=== PATIENT | male | born 1985 | race Caucasian/White ===

== ENCOUNTER 2016-12-16 06:49 | Emergency (ER) | payer SELFPAY ==
[2016-12-16 06:55] VITALS: TEMP 97.9
--- NOTE | 2016-12-16 07:21 | EDPHY ---
HPI/HX/ROS/PE/MDM Narrative: CHIEF COMPLAINT: Xanax withdrawal HPI: The patient is a 31-year-old male who comes to the ED because he is worried about withdrawing from Xanax. The patient is about to run out of Xanax. He states he takes up to 4mg per day. He has also been taking "Phenibut", a medication he orders online for anxiety. The patient states he has a lot to do this weekend and does not want to go to detox. He requests another dose of Xanax to help his withdraws. The patient has experienced benzo withdrawal in the past, no reported seizure withdrawal. He denies shakiness, fever, or abdominal pain. No nausea, vomiting, or diarrhea. REVIEW OF SYSTEMS: Aside from elements discussed in the HPI, a comprehensive 10-point review of systems was reviewed and is negative. PMH: Tonsillectomy. SOCIAL HISTORY: Substance abuse. PHYSICAL EXAM: General: Patient is alert, in no acute distress. ENT: Eyes are normal to inspection. ENT inspection normal. Neck: Normal inspection. Full range of motion. Respiratory: No respiratory distress. Breath sounds normal bilaterally. Cardiovascular: Regular rate and rhythm. Strong peripheral pulses. Abdomen: The abdomen is nontender to palpation. There are no peritoneal signs. There are normal bowel sounds. Back: Normal to inspection. No tenderness to palpation. Skin: Normal color. No rash. Warm and dry. Extremities: Normal appearance. Full range of motion. Neuro: Oriented x3. Normal motor function. Normal sensory function. MDM: This patient has a history of benzodiazepine abuse and essentially requests a prescription for benzodiazepine to ravi off withdrawal from the benzodiazepine he has run out of. He is not currently in withdrawal. I declined to write a prescription. I did strongly encourage him to allow us to transport him to the [facility] for withdrawal management and resources but he declines as he has several events he would like to attend this weekend. General Time Seen by Provider: 12/16/16 07:12 Initial Vital Signs: Initial Vital Signs Temperature (C) 36.6 C 12/16/16 06:52 Heart Rate 83 12/16/16 06:52 Respiratory Rate 17 12/16/16 06:52 Blood Pressure 126/70 H 12/16/16 06:52 O2 Sat (%) 98 12/16/16 06:52 O2 Delivery Mode Room Air Allergies/Adverse Reactions: metoclopramide [From Reglan] Allergy (Verified 12/16/16 06:51) Home Medications: Medication Instructions Recorded Omeprazole 12/16/16 Departure - Departure Disposition: Home, Routine, Self-Care Clinical Impression: alprazolam withdrawal Condition: Good Referrals: NONE *PRIMARY CARE P,. [Primary Care Provider] - As per Instructions Report Scribed for: Yang Hinds Report Scribed by: Rosy Chandler Date of Report: 12/16/16 Time of Report: 07:24 Physician Review and Approval Statement: Portions of this note were transcribed by a medical authorization specialist. I personally performed a history, physical exam, medical decision making, and confirmed accuracy of information the transcribed note.
[2016-12-16 07:31] VITALS: BP 131/78; PULSE 59; RESP 14; O2SAT 94
== END 2016-12-16 07:47 | disposition home or self-care (01) ==
DX: F13.239 Sedative, hypnotic or anxiolytic dependence with withdrawal, unspecified (principal)

== ENCOUNTER 2017-01-18 13:14 | Emergency (ER) | payer SELFPAY ==
[2017-01-18 13:25] VITALS: RESP 16; TEMP 98.1
--- NOTE | 2017-01-18 13:43 | EDPHY ---
H & P Stated Complaint: detoxing from benzos, needs help Time Seen by Provider: 01/18/17 13:43 - Personal History Current Tetanus/Diphtheria Vaccine: Unsure Current Tetanus Diphtheria and Acellular Pertussis (TDAP): Unsure - Medical/Surgical History Hx Asthma: No Hx Chronic Respiratory Disease: No Hx Diabetes: No Hx Cardiac Disease: No Hx Renal Disease: No Hx Cirrhosis: No Hx Alcoholism: No Hx HIV/AIDS: No Hx Splenectomy or Spleen Trauma: No Other PMH: PSHx: tonsillectomy, tubes in ears. PMHx: substance abuse - Social History Smoking Status: Current every day smoker Constitutional: Initial Vital Signs Temperature (C) 36.7 C 01/18/17 13:14 Heart Rate 93 01/18/17 13:14 Respiratory Rate 16 01/18/17 13:14 Blood Pressure 133/97 H 01/18/17 13:14 O2 Sat (%) 99 01/18/17 13:14 O2 Delivery Mode Room Air Allergies/Adverse Reactions: metoclopramide [From Reglan] Allergy (Verified 12/16/16 06:51) Home Medications: Medication Instructions Recorded Omeprazole 12/16/16 Medical Decision Making ED Course/Re-evaluation: CHIEF COMPLAINT: Benzodiazepine withdrawal HISTORY OF PRESENT ILLNESS: The patient is a 31 y/o male requesting help with benzodiazepine withdrawal. He has been weaning himself off Xanax for the last 4 days. He was taking between 2-4mg per day, and is now around 1mg per day. This morning he took 0.5mg Clonazepam to treat withdrawal symptom. His friend told him he had a seizure this morning, but the patient does not remember this happening. He reports he's had seizures during prior withdrawal episodes. He denies any recent trauma or illness and is otherwise healthy. No mental health history, suicidal or homicidal thoughts, or co-ingestions. He is here specifically requesting help finding a location to detox. REVIEW OF SYSTEMS: A 10 point review of systems was performed and is negative with the exception of the elements mentioned in the history of present illness. PHYSICAL EXAM: HR, BP, O2 Sat, RR. Temp noted General Appearance: Alert, well hydrated, appropriate, and non-toxic appearing. Head: Atraumatic without scalp tenderness or obvious injury Eyes: Pupils equal, round, reactive to light and accommodation, EOMI, no trauma , no injection. Nose: Atraumatic, no rhinorrhea, clear. Throat: Mucus membranes moist. Neck: Supple, nontender, no lymphadenopathy. Respiratory: No retractions, no distress, no wheezes, and no accessory muscle use. Lungs are clear to auscultation bilaterally. Cardiovascular: Regular rate and rhythm, no murmurs, rubs, or gallops. Good capillary refill all extremities. Gastrointestinal: Abdomen is soft, nontender, non-distended, no masses, no rebound, no guarding, no peritoneal signs. Musculoskeletal: Normal active ROM of all extremities, atraumatic. Neurological: Alert, appropriate, and interactive. Neurovascularly intact. Skin: No rashes, good turgor, no nodules on palpation. Past medical history: Substance abuse Past surgical history: tonsillectomy Family history: noncontributory Social history: Lives in [place] DIFFERENTIAL DIAGNOSIS: The differential diagnosis for the patient's symptoms included but was not limited to benzodiazepine abuse and withdrawal, narcotic abuse, alcohol abuse. MEDICAL DECISION MAKING: This is a 31 y/o male requesting assistance finding placement to withdraw from benzodiazepines. His exam is unremarkable and his vitals are within normal limits. Consulted with binder caser Dianne, who will work to find resources for the patient. This patient has been accepted by Dr. Babb at [facility]. We have faxed over his laboratory studies. Will be accepted about an hour. The patient has been given 1 mg of Ativan here needs another mg because of his withdrawal syndrome. We are feeding the patient. He is safe. - Data Points Laboratory Results: Laboratory Results 01/18/17 16:38 01/18/17 16:38 01/18/17 01/18/17 01/18/17 16:38 16:38 15:30 WBC 10.02 10^3/uL H 10^3/uL (3.80-9.50) RBC 5.93 10^6/uL 10^6/uL (4.40-6.38) Hgb 17.8 g/dL H g/dL (13.7-17.5) Hct 51.5 % H % (40.0-51.0) MCV 86.8 fL fL (81.5-99.8) MCH 30.0 pg pg (27.9-34.1) MCHC 34.6 g/dL g/dL (32.4-36.7) RDW 12.7 % % (11.5-15.2) Plt Count 313 10^3/uL 10^3/uL (150-400) MPV 10.1 fL fL (8.7-11.7) Neut % (Auto) 74.7 % H % (39.3-74.2) Lymph % (Auto) 15.2 % % (15.0-45.0) [place] % (Auto) 8.6 % % (4.5-13.0) Eos % (Auto) 0.6 % % (0.6-7.6) Baso % (Auto) 0.5 % % (0.3-1.7) Nucleat RBC Rel Count 0.0 % % (0.0-0.2) Absolute Neuts (auto) 7.49 10^3/uL H 10^3/uL (1.70-6.50) Absolute Lymphs (auto) 1.52 10^3/uL 10^3/uL (1.00-3.00) Absolute Monos (auto) 0.86 10^3/uL H 10^3/uL (0.30-0.80) Absolute Eos (auto) 0.06 10^3/uL 10^3/uL (0.03-0.40) Absolute Basos (auto) 0.05 10^3/uL 10^3/uL (0.02-0.10) Absolute Nucleated RBC 0.00 10^3/uL 10^3/uL (0-0.01) Immature Gran % 0.4 % % (0.0-1.1) Immature Gran # 0.04 10^3/uL 10^3/uL (0.00-0.10) Sodium 140 mEq/L mEq/L (134-144) Potassium 4.9 mEq/L mEq/L (3.5-5.2) Chloride 104 mEq/L mEq/L (97-110) Carbon Dioxide 21 mEq/l L mEq/l (22-31) Anion Gap 15 mEq/L mEq/L (8-16) BUN 19 mg/dL mg/dL (7-23) Creatinine 1.0 mg/dL mg/dL (0.7-1.3) Estimated GFR > 60 Glucose 132 mg/dL H mg/dL (70-100) Calcium 10.2 mg/dL mg/dL (8.5-10.4) Salicylates < 1.0 mg/dL L mg/dL (2.0-20.0) Urine Opiates Screen NEGATIVE (NEGATIVE) Acetaminophen < 10 mcg/mL L mcg/mL (10.0-30.0) Urine Barbiturates NEGATIVE (NEGATIVE) Ur Phencyclidine Scrn NEGATIVE (NEGATIVE) Ur Amphetamine Screen NEGATIVE (NEGATIVE) U Benzodiazepines Scrn NON-NEGATIVE H (NEGATIVE) Urine Cocaine Screen NON-NEGATIVE H (NEGATIVE) U Marijuana (THC) Screen NON-NEGATIVE H (NEGATIVE) Ethyl Alcohol < 10 mg/dL mg/dL (0-10) Medications Given: Discontinued Medications Lorazepam (Ativan) 1 mg PO EDNOW ONE Stop: 01/18/17 16:25 Last Admin: 01/18/17 16:32 Dose: 1 mg Departure - Departure Disposition: Home, Routine, Self-Care Clinical Impression: Benzodiazepine withdrawal Qualifiers: Complication of substance-induced condition: uncomplicated Qualified Code(s): F13.230 - Sedative, hypnotic or anxiolytic dependence with withdrawal, uncomplicated Condition: Good Instructions: Benzodiazepine Abuse (ED) Additional Instructions: Follow up with the resources as provided by case management. Return for worsening of condition. Report Scribed for: Bobo Bush Report Scribed by: Pari Simmons Date of Report: 01/18/17 Time of Report: 14:37
[2017-01-18] MEDS ORDERED: LORazepam 1 MG TAB PO ONE ×2 (16:24→20:40)
[2017-01-18 16:47] LABS: % IMMATURE GRANULYOCYTES 0.4 % (0.0-1.1); ABSOLUTE IMMATURE GRANULOCYTES 0.04 10^3/uL (0.00-0.10); ADD DIFF? NO; ADD MORPH? NO; ADD SCAN? NO; ATYPICAL LYMPHOCYTE FLAG 20 (0-99); FRAGMENT RBC FLAG 0 (0-99); HEMATOCRIT 51.5 % (40.0-51.0); HEMOGLOBIN 17.8 g/dL (13.7-17.5); LEFT SHIFT FLG 0 (0-99); LIPEMIA HEMOLYSIS FLAG 90 (0-99); MEAN CELL HEMOGLOBIN CONCENTR. 34.6 g/dL (32.4-36.7); MEAN CELL VOLUME 86.8 fL (81.5-99.8); MEAN PLATELET VOLUME 10.1 fL (8.7-11.7); PLATELET CLUMPS FLAG 0 (0-99); PLATELET COUNT 313 10^3/uL (150-400); RED BLOOD CELL COUNT 5.93 10^6/uL (4.40-6.38); RED CELL DISTRIBUTION WIDTH 12.7 % (11.5-15.2)
[2017-01-18 17:23] LABS: ANION GAP 15 mEq/L (8-16); CALCIUM 10.2 mg/dL (8.5-10.4); CARBON DIOXIDE 21 mEq/l (22-31); CHLORIDE 104 mEq/L (97-110); GLOMERULAR FILTRATION RATE > 60; GLUCOSE 132 mg/dL (70-100); POTASSIUM 4.9 mEq/L (3.5-5.2); SODIUM 140 mEq/L (134-144)
[2017-01-18 17:48] LABS: ETHANOL SERUM < 10 mg/dL (0-10); SALICYLATE < 1.0 mg/dL (2.0-20.0)
[2017-01-18 21:17] VITALS: BP 145/89; PULSE 70; O2SAT 95
== END 2017-01-18 21:15 | disposition home or self-care (01) ==
LOC: EDUNIT#
DX: F15.23 Other stimulant dependence with withdrawal (principal); F17.200 Nicotine dependence, unspecified, uncomplicated
CPT/HCPCS: 80305; G0480

== ENCOUNTER 2017-06-18 17:06 | Emergency (ER) | payer MEDICAID ==
[2017-06-18 17:18] VITALS: TEMP 98.4
--- NOTE | 2017-06-18 17:23 | EDPHY ---
H & P Stated Complaint: withdrawing from etoh/benzos/suboxone Source: Patient - Personal History Current Tetanus/Diphtheria Vaccine: Yes - Medical/Surgical History Hx Asthma: No Hx Chronic Respiratory Disease: No Hx Diabetes: No Hx Cardiac Disease: No Hx Renal Disease: No Hx Cirrhosis: No Hx Alcoholism: Yes Hx HIV/AIDS: No Hx Splenectomy or Spleen Trauma: No Other PMH: PSHx: tonsillectomy, tubes in ears. PMHx: substance abuse - Social History Smoking Status: Current every day smoker Time Seen by Provider: 06/18/17 17:20 HPI/ROS: CHIEF COMPLAINT: Withdrawing from alcohol and benzodiazepines HISTORY OF PRESENT ILLNESS: The patient presents to the ED requesting inpatient voluntary hospitalization for alcohol and benzodiazepine dependence. The patient has been using Suboxone over the past several weeks. He has been getting these medications off the street. The patient is prescribed psychiatric medications through [facility]. He reports he has been compliant with baclofen, gabapentin, Seroquel and propanolol. The patient denies any suicidal ideation. The patient has been a participate in alcoholics anonymous. The patient denies any acute medical complaints of fever, cough or congestion. The patient had been using approximately 3-4 mg of benzodiazepines daily. He is drinking approximately a pt of alcohol a day. The patient reports that he used Suboxone which he bought on the street approximately 14 of the last 21 days. He has been taking 8-16mg of Suboxone. REVIEW OF SYSTEMS: A comprehensive 10 point review of systems is otherwise negative aside from elements mentioned in the history of present illness. (Jae New) - Physical Exam Exam: General Appearance: Alert, no distress Eyes: Pupils equal and round no pallor or injection ENT, Mouth: Mucous membranes moist Respiratory: There are no retractions, lungs are clear to auscultation Cardiovascular: Regular rate and rhythm Gastrointestinal: Abdomen is soft and nontender, no masses, bowel sounds normal Neurological: A&O, normal motor function, normal sensory exam, normal cranial nerves Skin: Warm and dry, no rashes Musculoskeletal: Neck is supple nontender Extremities: symmetrical, full range of motion (Jae New) Constitutional: Initial Vital Signs Temperature (C) 36.9 C 06/18/17 17:16 Heart Rate 96 06/18/17 17:16 Respiratory Rate 16 06/18/17 17:16 Blood Pressure 137/86 H 06/18/17 17:16 O2 Sat (%) 95 06/18/17 17:16 O2 Delivery Mode Room Air Allergies/Adverse Reactions: metoclopramide [From Reglan] Allergy (Verified 06/18/17 17:14) naltrexone Allergy (Verified 06/18/17 17:14) Home Medications: Medication Instructions Recorded Omeprazole 12/16/16 GABAPENTIN 06/18/17 Propranolol HCl 06/18/17 Seroquel 06/18/17 Medical Decision Making ED Course/Re-evaluation: The patient presents to the ED requesting assistance with substance and alcohol abuse. The patient is not suicidal, homicidal or gravely disabled. Patient does not meet criteria for an M1 psychiatric hold. The patient is not eligible [facility] the [facility] secondary to his benzodiazepine use. I did contact [facility] and the patient is not eligible for a voluntary psychiatric hospitalization secondary to his insurance status. I consulted with [facility] at 5:45 p.m. I spoke with [facility] and they informed me they would consider the patient for voluntary admission. He has been at the facility in the past. They have requested a psychiatric evaluation in the emergency department. EPS will be notified and evaluate the patient. The patient will be turned over to Dr. Mosher at shift change pending psychiatric evaluation. (Jae New) 10:11 p.m. the patient has been evaluated by Mental Health. They have cleared him from further psychiatric treatment currently. He would like to go to [facility]. He has been given information the for outpatient treatment there. He may go there voluntarily. Will discharge him at this time. He is also open to going to the alcohol recovery Center. (Bruce Mosher) Differential Diagnosis: Differential diagnosis considered includes psychosis, depression, suicidal ideation, substance abuse, withdrawal (Jae New) - Data Points Laboratory Results: Laboratory Results 06/18/17 18:35 06/18/17 18:35 06/18/17 06/18/17 06/18/17 18:35 18:35 18:35 WBC 8.59 10^3/uL 10^3/uL (3.80-9.50) RBC 5.26 10^6/uL 10^6/uL (4.40-6.38) Hgb 15.8 g/dL g/dL (13.7-17.5) Hct 45.0 % % (40.0-51.0) MCV 85.6 fL fL (81.5-99.8) MCH 30.0 pg pg (27.9-34.1) MCHC 35.1 g/dL g/dL (32.4-36.7) RDW 12.5 % % (11.5-15.2) Plt Count 270 10^3/uL 10^3/uL (150-400) MPV 9.9 fL fL (8.7-11.7) Neut % (Auto) 60.9 % % (39.3-74.2) Lymph % (Auto) 28.1 % % (15.0-45.0) [place] % (Auto) 9.3 % % (4.5-13.0) Eos % (Auto) 0.7 % % (0.6-7.6) Baso % (Auto) 0.7 % % (0.3-1.7) Nucleat RBC Rel Count 0.0 % % (0.0-0.2) Absolute Neuts (auto) 5.23 10^3/uL 10^3/uL (1.70-6.50) Absolute Lymphs (auto) 2.41 10^3/uL 10^3/uL (1.00-3.00) Absolute Monos (auto) 0.80 10^3/uL 10^3/uL (0.30-0.80) Absolute Eos (auto) 0.06 10^3/uL 10^3/uL (0.03-0.40) Absolute Basos (auto) 0.06 10^3/uL 10^3/uL (0.02-0.10) Absolute Nucleated RBC 0.00 10^3/uL 10^3/uL (0-0.01) Immature Gran % 0.3 % % (0.0-1.1) Immature Gran # 0.03 10^3/uL 10^3/uL (0.00-0.10) Sodium 146 mEq/L H mEq/L (134-144) Potassium 4.2 mEq/L mEq/L (3.5-5.2) Chloride 108 mEq/L mEq/L (97-110) Carbon Dioxide 23 mEq/l mEq/l (22-31) Anion Gap 15 mEq/L mEq/L (8-16) BUN 9 mg/dL mg/dL (7-23) Creatinine 0.9 mg/dL mg/dL (0.7-1.3) Estimated GFR > 60 Glucose 89 mg/dL mg/dL (70-100) Calcium 9.5 mg/dL mg/dL (8.5-10.4) Urine Opiates Screen NEGATIVE (NEGATIVE) Urine Barbiturates NEGATIVE (NEGATIVE) Ur Phencyclidine Scrn NEGATIVE (NEGATIVE) Ur Amphetamine Screen NEGATIVE (NEGATIVE) U Benzodiazepines Scrn NEGATIVE (NEGATIVE) Urine Cocaine Screen NEGATIVE (NEGATIVE) U Marijuana (THC) Screen NON-NEGATIVE H (NEGATIVE) Ethyl Alcohol 100 mg/dL H mg/dL (0-10) Medications Given: Discontinued Medications Acetaminophen (Tylenol) 1,000 mg PO EDNOW ONE Stop: 06/18/17 20:18 Last Admin: 06/18/17 20:20 Dose: 1,000 mg Ibuprofen (Motrin) 600 mg PO EDNOW ONE Stop: 06/18/17 20:18 Last Admin: 06/18/17 20:20 Dose: 600 mg Ondansetron HCl (Zofran Odt) 4 mg PO EDNOW ONE Stop: 06/18/17 18:45 Last Admin: 06/18/17 18:52 Dose: 4 mg Departure - Departure Disposition: Home, Routine, Self-Care Clinical Impression: Polysubstance abuse Alcohol withdrawal Qualifiers: Complication of substance-induced condition: uncomplicated Qualified Code(s): F10.230 - Alcohol dependence with withdrawal, uncomplicated Condition: Good Instructions: Alcohol Withdrawal (ED) Referrals: NONE *PRIMARY CARE P,. [Primary Care Provider] - As per Instructions [facility],. [Clinic] - As per Instructions
[2017-06-18 18:43] LABS: PLATELET COUNT 270 10^3/uL (150-400)
[2017-06-18] MEDS ORDERED: ONDANSETRON DISINTEGRATING 4 MG TAB PO ONE (18:44)
[2017-06-18] MEDS ORDERED: ACETAMINOPHEN 500 MG TAB ONE (20:17)
[2017-06-18] MEDS ORDERED: IBUPROFEN 600 MG TAB PO ONE ×2 (20:17)
[2017-06-18] MEDS ORDERED: ACETAMINOPHEN 500 MG TAB PO ONE (20:17)
[2017-06-18 22:26] VITALS: BP 138/89; PULSE 101; RESP 18; O2SAT 97
== END 2017-06-18 22:26 | disposition home or self-care (01) ==
DX: F10.230 Alcohol dependence with withdrawal, uncomplicated (principal); F19.10 Other psychoactive substance abuse, uncomplicated; F17.200 Nicotine dependence, unspecified, uncomplicated
CPT/HCPCS: 80305; G0480

== ENCOUNTER 2017-06-30 12:30 | Emergency (ER) | payer MEDICAID ==
[2017-06-30 12:35] VITALS: TEMP 97.5
[2017-06-30] MEDS ORDERED: LORazepam 2 MG/ML INJ ONE (12:58)
[2017-06-30] MEDS ORDERED: LORazepam 2 MG/ML INJ IVP ONE (13:00)
--- NOTE | 2017-06-30 13:01 | EDPHY ---
H & P Stated Complaint: etoh/opiate and benzo withdrawal/last drink yesterday/seen for same Time Seen by Provider: 06/30/17 12:57 HPI/ROS: CHIEF COMPLAINT: Alcohol withdrawal HISTORY OF PRESENT ILLNESS: The patient presents the ED with complaints of alcohol withdrawal. The patient was seen in the emergency department at the end of May or requesting voluntary detox admission. The patient was given outpatient resources. He currently denies any suicidal or homicidal ideation. [facility]. REVIEW OF SYSTEMS: A comprehensive 10 point review of systems is otherwise negative aside from elements mentioned in the history of present illness. Source: Patient Exam Limitations: No limitations - Personal History Current Tetanus/Diphtheria Vaccine: Yes - Medical/Surgical History Hx Asthma: No Hx Chronic Respiratory Disease: No Hx Diabetes: No Hx Cardiac Disease: No Hx Renal Disease: No Hx Cirrhosis: No Hx Alcoholism: Yes Hx HIV/AIDS: No Hx Splenectomy or Spleen Trauma: No Other PMH: PSHx: tonsillectomy, tubes in ears. PMHx: substance abuse - Social History Smoking Status: Current every day smoker - Physical Exam Exam: General Appearance: Alert, slightly tremulous, no acute distress Eyes: Pupils equal and round no pallor or injection ENT, Mouth: Mucous membranes moist Respiratory: There are no retractions, lungs are clear to auscultation Cardiovascular: Regular rate and rhythm Gastrointestinal: Abdomen is soft and nontender, no masses, bowel sounds normal Neurological: A&O, normal motor function, normal sensory exam, normal cranial nerves Skin: Warm and dry, no rashes Musculoskeletal: Neck is supple nontender Extremities: symmetrical, full range of motion Constitutional: Initial Vital Signs Temperature (C) 36.4 C 06/30/17 12:32 Heart Rate 83 06/30/17 12:32 Respiratory Rate 16 06/30/17 12:32 Blood Pressure 152/107 H 06/30/17 12:32 O2 Sat (%) 99 06/30/17 12:32 O2 Delivery Mode Room Air Allergies/Adverse Reactions: metoclopramide [From Reglan] Allergy (Verified 06/30/17 12:32) naltrexone Allergy (Verified 06/30/17 12:32) Home Medications: Medication Instructions Recorded Omeprazole 12/16/16 GABAPENTIN 06/18/17 Propranolol HCl 06/18/17 Seroquel 06/18/17 Medical Decision Making ED Course/Re-evaluation: The patient presents to the ED with symptoms of mild alcohol withdrawal. He does not meet criteria for inpatient hospitalization. The patient has been informed that he [facility]. He is certainly free to contact [facility] to see if he is eligible for their outpatient programs. - Data Points Medications Given: Discontinued Medications Lorazepam (Ativan Injection) 2 mg IVP EDNOW ONE Stop: 06/30/17 13:01 Last Admin: 06/30/17 13:02 Dose: 2 mg Departure - Departure Disposition: Home, Routine, Self-Care Clinical Impression: Alcohol dependence Condition: Good Instructions: Alcohol Dependence (ED) Additional Instructions: 1. The [facility] is the only option available to you in [place] for your alcohol dependence. 2. I [facility] Referrals: [facility],. [Clinic] - As per Instructions [facility] [Outside] - As per Instructions
[2017-06-30] MEDS ORDERED: CHLORDIAZEPOXIDE 25MG PREPK#6 BTL TAKEHOME ONE ×2 (14:18→14:20)
[2017-06-30 14:28] VITALS: BP 158/97; PULSE 98; RESP 18; O2SAT 98
--- NOTE | 2017-06-30 17:05 | ASMTCMCOM ---
CM Note CM Note Notes: Met with patient to discuss options for detox and rehab. Chart reviewed. Patient has been to this ER on several occasions requesting resources and/or admission to voluntary detox. Patient is aware of and has been to The [facility], [facility], and [facility] in the past. I have informed patient of the above mentioned resources as well as support groups such as AA/NA. He does not share with me that he has been to these facilities (other than the [facility]) and tells me he will follow up with contacting other facilities for voluntary admission or intake screening. Patient is very pleasant and asks to be transferred to the [facility] at this time. I encouraged him to take initiative to plan for and commit to a detox followed by rehab and ongoing recovery. Patient transported directly to [facility] via Z trip Date Signed: 06/30/2017 05:05 PM Electronically Signed By:Xiomy Norris RN
== END 2017-06-30 15:09 | disposition home or self-care (01) ==
DX: F10.239 Alcohol dependence with withdrawal, unspecified (principal); F17.200 Nicotine dependence, unspecified, uncomplicated
CPT/HCPCS: 96374; J2060

== ENCOUNTER 2018-04-02 05:06 | Emergency (ER) | payer MEDICAID ==
[2018-04-02] MEDS ORDERED: CEPHALEXIN 500 MG CAP PO ONE (05:11)
--- NOTE | 2018-04-02 05:11 | EDPHY ---
H & P Time Seen by Provider: 04/02/18 05:09 HPI/ROS: HPI CHIEF COMPLAINT: Medical clearance for fci. Possible cellulitis. HISTORY OF PRESENT ILLNESS: 33-year-old male, history PTSD, polysubstance abuse , IV drug use, presents emergency room for medical clearance for fci as he has multiple areas on his arms where he injects and some skin markings concerning for early infection. Patient is afebrile nontoxic-appearing. He is skin popping sites. No large abscess. No significant cellulitis on exam. Sent here for medical clearance for fci. Past Medical History: PTSD. Past Surgical History: No recent surgery Social History: polysubstance abuse Family History: Noncontributory ROS REVIEW OF SYSTEMS: 10 Systems were reviewed and negative with the exception of the elements mentioned in the history of present illness. Exam Constitutional triage nursing summary reviewed, vital signs reviewed, awake/ alert. Eyes normal conjunctivae and sclera, EOMI, PERRLA. HENT normal inspection, atraumatic, moist mucus membranes, no epistaxis, neck supple/ no meningismus, no raccoon eyes. Respiratory clear to auscultation bilaterally, normal breath sounds, no respiratory distress, no wheezing. Cardiovascular rate normal, regular rhythm, no murmur, no edema, distal pulses normal. Gastrointestinal soft, non-tender, no rebound, no guarding, normal bowel sounds, no distension, no pulsatile mass. Genitourinary no CVA tenderness. Musculoskeletal no midline vertebral tenderness, full range of motion, no calf swelling, no tenderness of extremities, no meningismus, good pulses, neurovascularly intact. Skin multiple skin popping sites along his arms. No large abscess. No significant cellulitis. Neurologic awake, alert and oriented x 3, AAOx3, moves all 4 extremities equally, motor intact, sensory intact, CN II-XII intact, normal cerebellar, normal vision, normal speech. Psychiatric normal mood/affect. Heme/Lymph/Immune no lymphadenopathy. Differential Diagnosis: Includes but is not limited to in a particular order skin popping sites, early cellulitis, early abscess. IV drug use sites. Medical Decision Making: Plan for this patient recommend warm compresses in fci, 2 to 3 times a day, recommend Keflex as prescribed. He is appearing well here nontoxic stable vital signs and safe for discharge to the fci. Source: Patient, Police - Medical/Surgical History Hx Asthma: No Hx Chronic Respiratory Disease: No Hx Diabetes: No Hx Cardiac Disease: No Hx Renal Disease: No Hx Cirrhosis: No Hx Alcoholism: Yes Hx HIV/AIDS: No Hx Splenectomy or Spleen Trauma: No Other PMH: PSHx: tonsillectomy, tubes in ears. PMHx: substance abuse - Social History Smoking Status: Current every day smoker Allergies/Adverse Reactions: metoclopramide [From Reglan] Allergy (Verified 04/02/18 05:09) naltrexone Allergy (Verified 04/02/18 05:09) Home Medications: Medication Instructions Recorded Omeprazole 12/16/16 GABAPENTIN 06/18/17 Propranolol HCl 06/18/17 Seroquel 06/18/17 Cephalexin [Keflex] 500 mg PO Q6H #28 cap 04/02/18 Departure - Departure Disposition: Home, Routine, Self-Care Clinical Impression: Cellulitis Qualifiers: Site of cellulitis: extremity Site of cellulitis of extremity: upper extremity Laterality: unspecified laterality Qualified Code(s): L03.119 - Cellulitis of unspecified part of limb Condition: Good Instructions: Cellulitis (ED) Additional Instructions: 1. Medically cleared for fci. 2. Recommend warm compresses on you're skin sites 2 to 3 times a day. 3. Antibiotics as prescribed. Prescriptions: Cephalexin [Keflex] 500 mg PO Q6H #28 cap
[2018-04-02 05:14] VITALS: BP 120/105
== END 2018-04-02 05:20 ==
LOC: EEVIPCON 05:06
DX: L03.119 Cellulitis of unspecified part of limb (principal)